=== PATIENT | male | born 1950 | race Caucasian/White ===

== ENCOUNTER → 2016-10-25 | Outpatient (CLI) | payer OTHER ==
[~2016-10-25] VITALS: Ht 176.5 cm; Wt 87.1 kg
[~2016-10-25] MED LIST: AMLODIPINE BESYL5 MG PO; MUPIROCIN22 GM TP; PANTOPRAZOLE SO40 MG PO; RANITIDINE HCL150 MG PO; SIMVASTATIN20 MG PO; TUMS ULTRA1000 MG PO
== END | disposition home or self-care (01) ==
LOC: AMB 10:58
PROC: 0DB68ZX Excision of Stomach, Via Natural or Artificial Opening Endoscopic, Diagnostic (ICD-10-PCS; principal; 2016-10-25)
DX: K29.90 Gastroduodenitis, unspecified, without bleeding (principal); K21.0 Gastro-esophageal reflux disease with esophagitis; K44.9 Diaphragmatic hernia without obstruction or gangrene; I10 Essential (primary) hypertension; R63.4 Abnormal weight loss; E78.00 Pure hypercholesterolemia, unspecified; Z87.891 Personal history of nicotine dependence
CPT/HCPCS: 88305; 88342 TC; 93005